=== PATIENT | female | born 1990 | race Caucasian/White ===

== ENCOUNTER → 2016-11-15 | Outpatient (CLI) | payer MEDICAID ==
[~2016-11-15] MED LIST: FLAGYL500 M1 PO; MOTRIN 400MG.400 MG PO; NICOTINE T21 MG/24 H TD; PRENATAL PLUS1 TA1 PO; PRENATAL1 TA2 PO; SUBUTEX8 MG SL
--- NOTE | 2016-11-18 10:13 | RADIOLOGY REPORT PS360 ---
US BIOPHYSICAL PROFILE, US PREG FOLLOWUP SINGLE FETUS, SD RATIO UMBILICAL ARTERY Ordering Physician: Julien Fagan MD Patient Age: 26 years: Female HISTORY: OB US FOR DATES INDICATION: OB US FOR DATES TECHNIQUE: ultrasound transabdominal scanning/ MW COMPARISON: July 31, 2016 CT abdomen pelvis at which time FINDINGS Single viable intrauterine gestation. Cephalic position. Although not well viewed cervix appears satisfactory. . Limited survey performed for this biophysical profile exam. Survey Was unremarkable on the limited submitted images as in PACS.No discrete anomalies identified on survey imaging by technologist Active fetus. Three-vessel cord with satisfactory umbilical cord insertion. . Limited survey of brain & ventricles unremarkable. Limited views Diaphragm & views chest unremarkable. Four-chamber heart are visualized unremarkable abdomen: Both kidneys noted & unremarkable. Stomach noted & satisfactory. Amniotic fluid.-Adequate. Maternal adnexa -no gross incidental findings encountered. measurements:. Average ultrasound age 36 weeks 1 day. Gestational age 36 weeks 3 days... Based on LMP 03/05/2016. BPD = 38 week 2 day OFD = 39 week 0 day HC = 37 week 2 day AC = 35 week 2 day FL = 33 week 5 day Heart rate = 1:30 BPM. BERNARDO = 11.71 cm. Largest pocket RUQ measuring 5.4 cm. BIOPHYSICAL PROFILE: 8 of possible 8 points. 2+ scoring for movement, breathing, tone, amniotic fluid volume SD ratio =.2Sampling performed. First with SD ratio = 3.4 with RI = 0.71. Another with SD ratio 2.6 w/RI = 0.62 IMPRESSION: Single viable intrauterine gestation in cephalic position currently. 36 week 1 dayaverage ultrasound age with today's measurements (I would note that the abdominal circumference is 3 weeks less than the head measurements.. On the July 2016 exam it it was 2 weeks less than the BPD.) Posterior placenta. No previa 8 of 8 scoring on the BIOPHYSICAL PROFILE Active fetus. Unremarkable Limited anatomical survey
== END ==
LOC: RAD 09:57
DX: O36.5131 Maternal care for known or suspected placental insufficiency, third trimester, fetus 1 (principal)

== ENCOUNTER → 2016-11-25 | Outpatient (CLI) | payer MEDICAID | LOC: LAB 18:18 | DX: Z34.80 Encounter for supervision of other normal pregnancy, unspecified trimester (principal) ==

== ENCOUNTER 2016-12-09 08:39 | Outpatient (CLI) | payer MEDICAID ==
[~2016-12-09] VITALS: Ht 154.9 cm; Wt 56.0 kg
[2016-12-09 08:54] VITALS: BP 105/78
[2016-12-09] MEDS ORDERED: MACRODANTIN100 MG PO (09:19)
[2016-12-09] MEDS ORDERED: BUPRENORPHINE HY8 MG SL (09:20)
[2016-12-09 09:50] LABS: URINE BILIRUBIN - DIPSTICK NEGATIVE (NEG); URINE BLOOD NEGATIVE (NEG)
[2016-12-09 10:03] LABS: AMPHETAMINES/METAMPHETAMINES NEGATIVE ng/mL (<1000)
[2016-12-12 06:42] LABS: Buprenorphine Positive (.); Norbuprenorphine Positive (.)
== END 2016-12-09 10:20 | disposition home or self-care (01) ==
LOC: OB 08:39 → OBOUT 08:39 → OB 08:40 → OBOUT 10:20
PROVIDERS: Nurse Practitioner Obstetrics & Gynecology
DX: O26.93 Pregnancy related conditions, unspecified, third trimester (principal); Z3A.38 38 weeks gestation of pregnancy; M54.5 Low back pain